=== PATIENT | male | born 1940 | race Caucasian/White ===

== ENCOUNTER 2022-09-25 23:59 | Emergency (ER) | payer MEDICARE, OTHER ==
[~2022-09-25] VITALS: Ht 172.7 cm; Wt 105.5 kg
[2022-09-26 00:31] LABS: BASO # 0.03 K/mm3 (0.02-0.10); EOS % 3.4 % (0.0-4.0); HEMATOCRIT 40.7 % (42.0-52.0); HEMOGLOBIN 14.3 g/dL (13.5-18.0); LYMPH# 2.05 K/mm3 (1.50-4.00); MEAN CELL VOLUME 90 fl (78-100); MEAN CORPUSCULAR HEMOGLOBIN 32 pg (27-31); MEAN CORPUSCULAR HGB CONC 35 g/dL (33-37); MEAN PLATELET VOLUME 11.1 fl (7.4-10.4); MONO # 0.57 K/mm3 (0.20-0.80); NEU # 5.82 K/mm3 (1.40-6.50); PLATELET COUNT 176 K/mm3 (130-400); RED BLOOD COUNT 4.53 M/mm3 (4.20-5.60); RED CELL DISTRIBUTION WIDTH 12.7 % (11.5-14.5); WHITE BLOOD COUNT 8.8 K/mm3 (4.8-10.8)
[2022-09-26 00:41] LABS: ALBUMIN 4.2 g/dL (3.4-4.8); POTASSIUM 3.9 mmol/L (3.5-5.1); SODIUM 139 mmol/L (136-145)
[2022-09-26 00:42] LABS: CALCIUM 9.4 mg/dL (8.3-10.5)
[2022-09-26 00:43] LABS: GLUCOSE 243 mg/dL (75-110)
[2022-09-26 00:44] LABS: CARBON DIOXIDE 21 mmol/L (23-31)
[2022-09-26 00:45] LABS: TOTAL BILIRUBIN 1.2 mg/dL (0.2-1.2)
[2022-09-26 00:48] LABS: ALCOHOL IN-HOUSE < 10 mg/dL (<10); AST-SGOT 22 U/L (5-34)
[2022-09-26 00:53] LABS: ALT/SGPT 18 U/L (0-55)
[2022-09-26 00:59] LABS: TROPONIN-I < 0.030 ng/mL (<0.030)
[2022-09-26 01:24] LABS: URINE APPEARANCE CLEAR; URINE BILIRUBIN NEGATIVE (NEGATIVE); URINE BLOOD TRACE (NEGATIVE); URINE COLOR YELLOW; URINE GLUCOSE 50 mg/dL (NEGATIVE); URINE KETONE NEGATIVE (NEGATIVE); URINE LEUKOCYTE ESTERASE NEGATIVE (NEGATIVE); URINE NITRATE NEGATIVE (NEGATIVE); URINE PROTEIN(semi-quant) 2+ (NEGATIVE); URINE UROBILINOGEN NORMAL (NORMAL); URINE WBC 0-1 /hpf (0-3)
[2022-09-26] MEDS ORDERED: PRAVASTATIN SOD20 MG PO (01:29)
[2022-09-26] MEDS ORDERED: LOSARTAN POTAS100 MG PO (01:29)
[2022-09-26] MEDS ORDERED: ZYLOPRIM 100MG100 MG PO (01:30)
[2022-09-26] MEDS ORDERED: LEVEMIR FLEX100 U/ML SQ (01:30)
[2022-09-26] MEDS ORDERED: METFORMIN ER500 MG PO (01:32)
[2022-09-26] MEDS ORDERED: GOOD NEIGHBOR325 MG PO (01:33)
[2022-09-26 12:27] VITALS: BP 175/78
== END 2022-09-26 12:38 | disposition short-term general hospital (02) ==
LOC: ED 23:59
PROVIDERS: Family Medicine
DX: R41.82 Altered mental status, unspecified (principal); R74.8 Abnormal levels of other serum enzymes; E66.9 Obesity, unspecified; Z68.35 Body mass index [BMI] 35.0-35.9, adult
CPT/HCPCS: J7030